=== PATIENT | female | born 1985 | race Caucasian/White ===

== ENCOUNTER 2017-03-11 13:27 | Emergency (ER) | payer OTHER ==
[2017-03-11 14:08] VITALS: BP 123/75
--- NOTE | 2017-03-11 15:34 | ED ---
Neck Pain - HPI Summary HPI Summary: 31 yr old female with the complaint of three months of her arms falling asleep when laying on back, and also complains of pain in both shoulders. She states laying on either side will cause either arm to fall asleep and that shoulder to hurt. She states if she lays on her stomach her neck hurts. She reports a numb feeling base of posterior neck for a month. She denies bowel or bladder incontinence. no change in gait. No weakness or numbness in her arms now. She has no CP, no SOB. 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 She has not had any falls, trauma, or injuries. - History of Current Complaint Chief Complaint: UCUpperExtremity Stated Complaint: BILATERAL ARM/SHOULDER PAIN Time Seen by Provider: 03/11/17 15:14 Hx Last Menstrual Period: 02/25/17 - Allergies/Home Medications Allergies/Adverse Reactions: Allergies Allergy/AdvReac Type Severity Reaction Status Date / Time No Known Allergies Allergy Verified 03/11/17 13:58 Home Medications: Home Medications NK [No Home Medications Reported] 03/11/17 [History Confirmed 03/11/17] PMH/Surg Hx/FS Hx/Imm Hx Previously Healthy: Yes Endocrine/Hematology History: Denies: Hx Diabetes, Hx Thyroid Disease Cardiovascular History: Denies: Hx Hypertension, Hx Pacemaker/ICD Respiratory History: Denies: Hx Asthma, Hx Chronic Obstructive Pulmonary Disease (COPD) GI History: Denies: Hx Ulcer History: Denies: Hx Dialysis, Hx Renal Disease Sensory History: Denies: Hx Hearing Aid Psychiatric History: Denies: Hx Panic Disorder - Surgical History Surgery Procedure, Year, and Place: x1 tubal ligation Infectious Disease History: No Infectious Disease History: Denies: Hx Clostridium Difficile, Hx Hepatitis, Hx Human Immunodeficiency Virus (HIV), Hx of Known/Suspected MRSA, Hx Shingles, Hx Tuberculosis, Hx Known/ Suspected VRE, Hx Known/Suspected VRSA, History Other Infectious Disease, Traveled Outside the [place] in Last 30 Days - Family History Known Family History: Positive: Cardiac Disease Negative: Hypertension, Diabetes - Social History Alcohol Use: Rare Substance Use Type: Reports: None Smoking Status (MU): Former Smoker Have You Smoked in the Last Year: No Review of Systems Constitutional: Negative Positive: Other - neck pain and pain in shoulders. Positive: Numbness. Negative: Headache, Weakness, Paresthesia, Syncope, Slurred Speech All Other Systems Reviewed And Are Negative: Yes Physical Exam Triage Information Reviewed: Yes Vital Signs On Initial Exam: Initial Vitals Temp Pulse Resp BP Pulse Ox 98.8 F 91 18 123/75 100 03/11/17 13:59 03/11/17 13:59 03/11/17 13:59 03/11/17 13:59 03/11/17 13:59 Vital Signs Reviewed: Yes Appearance: Positive: Well-Appearing, No Pain Distress Skin: Positive: Skin Color Reflects Adequate Perfusion Head/Face: Positive: Normal Head/Face Inspection Eyes: Positive: EOMI ENT: Positive: Normal ENT inspection Neck: Positive: Nontender Respiratory/Lung Sounds: Positive: Clear to Auscultation, Breath Sounds Present Cardiovascular: Positive: RRR, Pulses are Symmetrical in both Upper and Lower Extremities - both wrists with symmetric pulses. No swelling to the arms.. Negative: Murmur Abdomen Description: Positive: Nontender Bowel Sounds: Positive: Present Musculoskeletal: Positive: Normal, Strength/ROM Intact Neurological: Positive: Sensory/Motor Intact, Alert, Oriented to Person Place, Time, CN Intact II-III Psychiatric: Positive: Normal - Reyes Coma Scale Best Eye Response: 4 - Spontaneous Best Motor Response: 6 - Obeys Commands Best Verbal Response: 5 - Oriented Diagnostics - Vital Signs Vital Signs Temp Pulse Resp BP Pulse Ox 03/11/17 13:59 98.8 F 91 18 123/75 100 - Laboratory Lab Statement: Any lab studies that have been ordered have been reviewed, and results considered in the medical decision making process. Neck Course/Dx - Course Course Of Treatment: 31 yr old female with likely cervical spine issue that needs MRI but not able to do here and her PMD will not see her per the patient. Have sent to the ER for further evaluation. - Diagnoses Provider Diagnoses: Cervical radiculopathy Discharge - Discharge Plan Condition: Good Disposition: HOME Patient Education Materials: Cervical Radiculopathy (ED) Referrals: [facility] [place] [facility] [Outside] - 2 Days No Primary Care Phys,NOPCP [Primary Care Provider] - Additional Instructions: Go to the ER for further evaluation, and imaging of your problem and work up of the cause.
== END 2017-03-11 15:35 | disposition home or self-care (01) ==
LOC: UCCORT 13:27
DX: M54.12 Radiculopathy, cervical region (principal); Z87.891 Personal history of nicotine dependence
CPT/HCPCS: 99212; G0463

== ENCOUNTER 2017-04-10 12:13 | Emergency (ER) | payer SELFPAY ==
[2017-04-10 13:59] VITALS: BP 118/78
--- NOTE | 2017-04-10 14:39 | UC ---
FLU HPI - HPI Summary HPI Summary: 6 days of nose congestion, cough worse at night no know fevers but does feel feverish, children with similar symptoms - History of Current Complaint Chief Complaint: UCGeneralIllness Stated Complaint: SORE THROAT,COUGH,CONGESTED Time Seen by Provider: 04/10/17 14:31 Hx Last Menstrual Period: 1 week ago ?: No Onset/Duration: Sudden Onset, Lasting Days - 6 Severity Currently: Moderate Severity Initially: Mild Pain Intensity: 6 Associated Signs & Symptoms: Positive: Fever, Myalgia, Cough, Sore Throat, Headache Related Hx: Possible Flu/Infectious Exposure - Allergy/Home Medications Allergies/Adverse Reactions: Allergies Allergy/AdvReac Type Severity Reaction Status Date / Time No Known Allergies Allergy Verified 04/10/17 13:59 PMH/Surg Hx/FS Hx/Imm Hx Previously Healthy: Yes - Surgical History Surgical History: Yes Surgery Procedure, Year, and Place: x1 tubal ligation - Family History Known Family History: Positive: Cardiac Disease Negative: Hypertension, Diabetes - Social History Occupation: Disabled Lives: With Family Alcohol Use: Rare Substance Use Type: None Smoking Status (MU): Former Smoker Have You Smoked in the Last Year: No When Did the Patient Quit Smoking/Using Tobacco: 2006 - Immunization History Most Recent Influenza Vaccination: not this season Review of Systems Constitutional: Chills, Fatigue Skin: Negative Eyes: Negative ENT: Sore Throat, Ear Ache, Nasal Discharge Respiratory: Cough Cardiovascular: Negative Gastrointestinal: Negative Genitourinary: Negative Motor: Negative Neurovascular: Negative Musculoskeletal: Arthralgia, Myalgia Neurological: Headache Psychological: Negative Is Patient Immunocompromised?: No All Other Systems Reviewed And Are Negative: Yes Physical Exam Triage Information Reviewed: Yes Appearance: Well-Appearing, No Pain Distress, Well-Nourished Vital Signs: Initial Vital Signs Temp 97.9 F 04/10/17 13:51 Pulse 80 04/10/17 13:51 Resp 15 04/10/17 13:51 BP 118/78 04/10/17 13:51 Pulse Ox 97 04/10/17 13:51 Vital Signs Reviewed: Yes Eye Exam: Normal Eyes: Positive: Conjunctiva Clear ENT Exam: Normal ENT: Positive: Normal ENT inspection, Hearing grossly normal, Pharynx normal, TMs normal, Uvula midline. Negative: Nasal congestion, Nasal drainage, Tonsillar swelling, Tonsillar exudate, Trismus, Muffled voice, Hoarse voice, Dental tenderness, Sinus tenderness Dental Exam: Normal Neck exam: Normal Neck: Positive: Supple, Nontender, No Lymphadenopathy Respiratory Exam: Normal Respiratory: Positive: Chest non-tender, Lungs clear, Normal breath sounds, No respiratory distress, No accessory muscle use Cardiovascular Exam: Normal Cardiovascular: Positive: RRR, No Murmur, Pulses Normal, Brisk Capillary Refill Musculoskeletal Exam: Normal Musculoskeletal: Positive: Strength Intact, ROM Intact, No Edema Neurological Exam: Normal Neurological: Positive: Alert, Muscle Tone Normal Psychological Exam: Normal Skin Exam: Normal Diagnostics - Laboratory Diagnostic Studies Completed/Ordered: Influenza A/B(-) Flu Course/Dx - Course Course Of Treatment: patient refused strep testing, increase fluids, rest tylenol ibuprofen follow with pcp prn - Differential Dx/Diagnosis Provider Diagnoses: Viral Illness Discharge - Discharge Plan Condition: Stable Disposition: HOME Patient Education Materials: Ibuprofen (By mouth), Viral Syndrome (ED) Referrals: Lupe Moraes MD [Medical Doctor] - If Needed
== END 2017-04-10 16:05 | disposition home or self-care (01) ==
LOC: UCEAST 12:13
DX: B34.9 Viral infection, unspecified (principal); Z87.891 Personal history of nicotine dependence
CPT/HCPCS: 87502; 99211; G0463

== ENCOUNTER 2018-05-21 18:00 | Emergency (ER) | payer OTHER ==
--- OUTSIDE RECORDS SUMMARY | 2018-05-21 18:13 | XMS REPORT | Continuity of Care Document ---
:1985 External Reference #:[id number] Author Name Major Poole M.D. Address [address] [place] [address] Care Team Providers Name Role Phone Carlo Lutz DO Care Team Information Pain[employer]ader Cork Unavailable Payers Date Identification Numbers Payment Provider Subscriber Policy Number: [id number] [facility] Wendy [place] PayID: [id number] [address] [place] [id number] Advance Directives Description No Information Available Problems Date Description Provider Status Onset: 11/01/2014 Headache Major Poole M.D. 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[place], [place] Tobacco Use Start: Unknown End: Former Cigarette Smoker 1/2 Unknown Pack Daily Cigarette Use for 10 yrs, quit at age 22 Tobacco Use Start: Unknown Never Smoked Cigars Tobacco Use Start: Unknown Never Smoked A Pipe Smokeless Tobacco Never Used Smokeless Tobacco ETOH Use Currently rarely consumes alcohol Tobacco Use Start: Unknown End: Patient is a former smoker quit age 22 Unknown Smoking Status Reviewed: 05/04/18 Patient is a former smoker quit age 22 Allergies, Adverse Reactions, Alerts Description No Known Drug Allergies Medications Medication Date Status Form Strength Qnty SIG Indications Ordering Provider Ibuprofen Active Capsules 200mg 2 by mouth Unknown 00 every day Prednisone 11/02/19 Hx Tablets 10mg 120tabs 60 mg by 389.15 Major Hernandez 15 - mouth Zulema, 11/22/19 everyday M.DSheree 15 for 14 days, then 40 mg for 4days, then 20 mg for 4 days, then 10 mg for 4 days, then 5 mg for 4 day Tylenol Hx Tablets 325mg as needed Unknown 00 - for pain 11/27/19 18 Magnesium Hx Capsules 300mg as directed Unknown - 05/05/19 19 Immunizations Description No Information Available Vital Signs Date Vital Result Comment 05/04/2018 3:08pm Weight 154.00 lb Weight 69.854 kg Height 64 inches 5'4" Height in cm's 162.6 cm BMI (Body Mass Index) 26.4 kg/m2 11/26/2017 2:03pm Weight 155.00 lb Weight 70.308 kg Height 64 inches 5'4" Height in cm's 162.6 cm BMI (Body Mass Index) 26.6 kg/m2 11/01/2014 11:20am BP Systolic 113 mmHg BP Diastolic 79 mmHg Heart Rate 83 /min Respiratory Rate 16 /min Weight 145.00 lb Weight 65.772 kg Height 64 inches 5'4" Height in cm's 162.6 cm BMI (Body Mass Index) 24.9 kg/m2 Results Description No Information Available Procedures Date Code Description Status 11/21/2014 51329 No Show Fee Completed 11/01/2014 57984 Tympanometry Completed 11/01/2014 15060 Comprehensive Audiogram Completed Encounters Type Date Location Provider Dx Diagnosis Office Visit 11/26/2017 [place],[facility] Major Hernandez 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 She has a follow-up appointment scheduled with Dr. Poole to review the results. She is encouraged to call with any questions or concerns.
[2018-05-21 19:08] VITALS: BP 126/64
--- NOTE | 2018-05-21 19:24 | UC ---
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 Now having body aches, hot/ cold chills, sore throat and headache since then. Would like to be strep tested. " + body aches, but unsure if she is just sore from new job at [employer]. -took some dayquil w/o relief -no rash. -hungry but feels like she cant eat -has had loose stools x 4 days. no blood/melena. 2x/day - occurs after she eats. - History of Current Complaint Chief Complaint: UCGeneralIllness Stated Complaint: ACHY,ST Time Seen by Provider: 05/21/18 19:22 Hx Last Menstrual Period: 05/14/18 Pain Intensity: 8 - Allergies/Home Medications Allergies/Adverse Reactions: Allergies Allergy/AdvReac Type Severity Reaction Status Date / Time No Known Allergies Allergy Verified 05/21/18 19:04 Home Medications: Home Medications D-Methorphan/PE/Acetaminophen [Daytime Cold Relief Caplet] 1 tab PO ONCE [History Confirmed 05/21/18] PMH/Surg Hx/FS Hx/Imm Hx Previously Healthy: Yes - Surgical History Surgical History: Yes Surgery Procedure, Year, and Place: 2003- W/tubal ligation - Family History Known Family History: Positive: Cardiac Disease Negative: Hypertension, Diabetes - Social History Alcohol Use: Occasionally Substance Use Type: None Smoking Status (MU): Former Smoker Have You Smoked in the Last Year: No When Did the Patient Quit Smoking/Using Tobacco: 2006 - Immunization History Most Recent Influenza Vaccination: not this season Review of Systems All Other Systems Reviewed And Are Negative: Yes Constitutional: Positive: Chills, Fatigue Skin: Positive: Negative Eyes: Positive: Negative ENT: Positive: Sore Throat. Negative: Ear Ache, Nasal Discharge, Sinus Congestion, Sinus Pain/Tenderness Respiratory: Positive: Negative. Negative: Shortness Of Breath, Cough Cardiovascular: Positive: Negative Gastrointestinal: Positive: Diarrhea, Nausea Genitourinary: Positive: Negative Motor: Positive: Negative Neurovascular: Positive: Negative Musculoskeletal: Positive: Negative Neurological: Positive: Negative Psychological: Positive: Negative Is Patient Immunocompromised?: No Physical Exam Triage Information Reviewed: Yes Appearance: Well-Appearing, No Pain Distress, Well-Nourished Vital Signs: Initial Vital Signs Temp 98.3 F 05/21/18 19:04 Pulse 72 05/21/18 19:04 Resp 16 05/21/18 19:04 BP 126/64 05/21/18 19:04 Pulse Ox 99 05/21/18 19:04 Vital Signs Reviewed: Yes Eye Exam: Normal ENT: Positive: Pharynx normal - airway patent, + PND, no exudate, no erythema. uvula nml size, midline., TMs normal, Uvula midline. Negative: Nasal congestion , Nasal drainage, TM bulging, TM dull, TM red, Tonsillar swelling, Tonsillar exudate, Hoarse voice, Sinus tenderness Dental Exam: Normal Neck exam: Normal Neck: Positive: Supple, Nontender, No Lymphadenopathy Respiratory Exam: Normal Respiratory: Positive: Chest non-tender, Lungs clear, Normal breath sounds, No respiratory distress, No accessory muscle use. Negative: Crackles, Rhonchi, Stridor, Wheezing Cardiovascular Exam: Normal Cardiovascular: Positive: RRR, No Murmur, Pulses Normal, Brisk Capillary Refill Abdominal Exam: Normal Abdomen Description: Positive: Nontender, Soft. Negative: CVA Tenderness (R), CVA Tenderness (L), Distended, Guarding, Hepatomegaly, Peritoneal Signs, Splenomegaly Bowel Sounds: Positive: Present Musculoskeletal Exam: Normal Neurological Exam: Normal Psychological Exam: Normal Skin Exam: Normal Throat Pain/Nasal Course/Dx - Course Course Of Treatment: -rapid strep negative -rapid flu - Differential Dx/Diagnosis Differential Diagnosis/HQI/PQRI: Influenza, Peritonsillar Abscess, Pharyngitis, Tonsillitis, URI Provider Diagnosis: Viral syndrome Discharge - Sign-Out/Discharge Documenting (check all that apply): Patient Departure All imaging exams completed and their final reports reviewed: No Studies - Discharge Plan Condition: Stable Disposition: HOME Patient Education Materials: Viral Syndrome (ED) Referrals: Carlo Lutz DO [Primary Care Provider] - Additional Instructions: -There is no evidence for bacterial infection at this time. Rapid flu and strep are negative. Make sure to drink plenty of fluids and get lots of rest. Follow up with your PCP in 4 days but you should be seen sooner if your symptoms worsen. - Billing Disposition and Condition Condition: STABLE Disposition: Home
[2018-05-21 20:07] LABS: Influenza A Molecular NEGATIVE (Negative); Influenza B Molecular NEGATIVE (Negative)
== END 2018-05-21 20:32 | disposition home or self-care (01) ==
LOC: UCCORT 18:00
DX: B34.9 Viral infection, unspecified (principal); R11.0 Nausea; J02.9 Acute pharyngitis, unspecified; R51 Headache; R10.9 Unspecified abdominal pain; Z87.891 Personal history of nicotine dependence
CPT/HCPCS: 87651; 99211; G0463

== ENCOUNTER 2019-05-04 16:55 | Emergency (ER) | payer OTHER ==
[2019-05-04 18:01] VITALS: BP 112/72
--- NOTE | 2019-05-04 19:07 | UC ---
Minor Trauma HPI - HPI Summary HPI Summary: 33 yo female states that this AM a "tugger" ran in to a pallet full of boxes and knocked her down She landed flat on her back no head injury/LOC this occured about 4 hours ago her back feels tight also some mild forearm pain R Initially had burning pain right leg..now improving - History of Current Complaint Chief Complaint: UCUpperExtremity Stated Complaint: WORK INJURY KNOCKED OVER BY MACHINE Time Seen by Provider: 05/04/19 19:00 Hx Obtained From: Patient Hx Last Menstrual Period: 04/17/19 Onset/Duration: Sudden Onset, Lasting Hours Onset Of Pain: Immediate Severity Initially: Moderate Severity Currently: Moderate Pain Intensity: 6 Pain Scale Used: 0-10 Numeric Mechanism Of Injury: Fall From A Standing Position Aggravating Factor(s): Deep Breaths, Movement Alleviating Factor(s): Rest Associated Signs And Symptoms: Negative: Loss Of Consciousness, Ecchymosis, Swelling Related History: Positive: Occupational Injury Body - Head: 1 - pain 2 - intermittent pain 3 - tenderness 4 - tender - Allergies/Home Medications Allergies/Adverse Reactions: Allergies Allergy/AdvReac Type Severity Reaction Status Date / Time No Known Allergies Allergy Verified 05/04/19 18:01 Home Medications: Home Medications Ibuprofen TAB* [Motrin TAB* 400 MG] 400 mg PO Q24H PRN 05/04/19 [History Confirmed 05/04/19] Ibuprofen TAB* [Motrin TAB*] 600 mg PO QID PRN #40 tab 05/04/19 [Rx] PMH/Surg Hx/FS Hx/Imm Hx Previously Healthy: Yes - Surgical History Surgical History: Yes Surgery Procedure, Year, and Place: 2003- W/tubal ligation - Family History Known Family History: Positive: Cardiac Disease Negative: Hypertension, Diabetes - Social History Alcohol Use: Occasionally Substance Use Type: None Smoking Status (MU): Former Smoker Have You Smoked in the Last Year: No When Did the Patient Quit Smoking/Using Tobacco: 2006 - Immunization History Most Recent Influenza Vaccination: not this season Review of Systems All Other Systems Reviewed And Are Negative: Yes Constitutional: Positive: Negative Skin: Positive: Negative Eyes: Positive: Negative ENT: Positive: Negative Respiratory: Positive: Negative Cardiovascular: Positive: Negative Gastrointestinal: Positive: Negative Genitourinary: Positive: Negative Motor: Positive: Negative Neurovascular: Positive: Negative Musculoskeletal: Positive: Negative Neurological/Mental Status: Positive: Negative Psychological: Positive: Negative Physical Exam Triage Information Reviewed: Yes Appearance: Well-Appearing, No Pain Distress, Well-Nourished Vital Signs: Initial Vital Signs Temp 98.9 F 05/04/19 17:47 Pulse 82 05/04/19 17:47 Resp 18 05/04/19 17:47 BP 112/72 05/04/19 17:47 Pulse Ox 100 05/04/19 17:47 Vital Signs Reviewed: Yes Eyes: Positive: Conjunctiva Clear ENT: Positive: Uvula midline. Negative: Nasal congestion, Nasal drainage, Trismus, Muffled voice, Hoarse voice Neck: Positive: Supple, Nontender, No Lymphadenopathy Respiratory: Positive: Chest non-tender, Lungs clear, Normal breath sounds, No respiratory distress, No accessory muscle use Cardiovascular: Positive: RRR, No Murmur Abdomen Description: Positive: Nontender, No Organomegaly. Negative: CVA Tenderness (R), CVA Tenderness (L) Bowel Sounds: Positive: Present Musculoskeletal: Positive: ROM Intact, No Edema Neurological: Positive: Alert Psychological Exam: Normal Skin Exam: Normal Diagnostics - Radiology No standard instances Radiology Interpretation Completed By: ED Physician Summary of Radiographic Findings: no fx Minor Trauma Course/Dx - Differential Dx/Diagnosis Provider Diagnosis: Contusion of right forearm, Contusion of right leg, Thoracic myofascial strain , Back contusion Discharge ED - Sign-Out/Discharge Documenting (check all that apply): Patient Departure All imaging exams completed and their final reports reviewed: No - Discharge Plan Condition: Stable Disposition: HOME Patient Education Materials: Thoracic Back Strain (ED), Contusion in Adults (ED ) Forms: *Work Release Referrals: Yan Castillo MD [Medical Doctor] - 5 Days (if not better) Additional Instructions: rest ice motrin - Billing Disposition and Condition Condition: STABLE Disposition: Home
[2019-05-04] MEDS ORDERED: Ibuprofen TAB* 600 MG PO ONE (19:14)
--- NOTE | 2019-05-05 12:07 | UC ---
- Progress Note Progress Note: Per Dr. Fonseca: negative exam on thoracic study. No change from wet read. Course/Dx - Diagnoses Provider Diagnoses: Contusion of right forearm, Contusion of right leg, Thoracic myofascial strain , Back contusion Discharge ED - Sign-Out/Discharge Documenting (check all that apply): Post-Discharge Follow Up All imaging exams completed and their final reports reviewed: Yes - Discharge Plan Condition: Stable Disposition: HOME Prescriptions: Ibuprofen TAB* [Motrin TAB*] 600 mg PO QID PRN #40 tab PRN Reason: Pain Patient Education Materials: Contusion in Adults (ED), Thoracic Back Strain (ED ) Forms: *Work Release Referrals: Yan Castillo MD [Medical Doctor] - 5 Days (if not better) Additional Instructions: rest ice motrin - Billing Disposition and Condition Condition: STABLE Disposition: Home
== END 2019-05-04 19:54 | disposition home or self-care (01) ==
LOC: UCCORT 16:55
DX: S50.11XA Contusion of right forearm, initial encounter (principal); S80.11XA Contusion of right lower leg, initial encounter; S39.012A Strain of muscle, fascia and tendon of lower back, initial encounter; S30.0XXA Contusion of lower back and pelvis, initial encounter; Z87.891 Personal history of nicotine dependence; W18.30XA Fall on same level, unspecified, initial encounter; Y92.9 Unspecified place or not applicable
CPT/HCPCS: 72070; 99212; A9270-GY; G0463